=== PATIENT | female | born 1960 | race Caucasian/White ===

== ENCOUNTER → 2017-03-03 | Outpatient (CLI) | payer BC ==
--- NOTE | 2017-03-03 09:59 | MM ---
Reason for exam: additional evaluation requested from prior study. Last mammogram was performed 1 year and 2 months ago. History: Patient is postmenopausal, has history of breast cancer at age 45, and history of other cancer. Family history of breast cancer in mother at age 64 and breast cancer in maternal aunt. Benign core biopsy of the right breast, September 23, 2010. Benign core biopsy of the right breast, 2009. Breast lift of the right breast, July 2007. Saline implant in the left breast, 2007. Mastectomy of the left breast, August 12, 2006. Malignant lumpectomy of the left breast, February 16, 2006. Mastectomy of the left breast. Took hormonal contraceptives for 4 years. Physical Findings: Nurse did not find any significant physical abnormalities on exam. MG 3D Diag Mammo W/Cad RT CC and MLO view(s) were taken of the right breast. Prior study comparison: January 14, 2016, right breast MG diagnostic mammo RT w CAD. December 26, 2014, right breast MG diagnostic mammo RT w CAD. The breast tissue is heterogeneously dense. This may lower the sensitivity of mammography. Finding: There are typically benign round, regional calcifications in the right breast. Previous mammotome biopsy in the right breast. There is no discrete abnormality. These results were verbally communicated with the patient and result sheet given to the patient on 03/03/17. ASSESSMENT: Benign, BI-RAD 2 RECOMMENDATION: Follow-up diagnostic mammogram of the right breast in 1 year.
== END | disposition home or self-care (01) ==
LOC: RADMAMWWP 08:48
PROVIDERS: ATTEND Surgery
DX: Z08 Encounter for follow-up examination after completed treatment for malignant neoplasm (principal); Z85.3 Personal history of malignant neoplasm of breast
CPT/HCPCS: G0206; G0279

== ENCOUNTER → 2018-03-25 | Outpatient (CLI) | payer BC ==
--- NOTE | 2018-03-25 10:09 | MM ---
Reason for exam: additional evaluation requested from prior study. Last mammogram was performed 1 year and 1 month ago. History: Patient is postmenopausal, has history of breast cancer at age 45, and history of other cancer. Family history of breast cancer in mother at age 64 and breast cancer in maternal aunt. Benign core biopsy of the right breast, September 23, 2010. Benign core biopsy of the right breast, 2009. Breast lift of the right breast, July 2007. Saline implant in the left breast, 2007. Mastectomy of the left breast, August 12, 2006. Malignant lumpectomy of the left breast, February 16, 2006. Mastectomy of the left breast. Took hormonal contraceptives for 4 years. Physical Findings: Nurse did not find any significant physical abnormalities on exam. MG 3D Diag Mammo W/Cad RT CC and MLO view(s) were taken of the right breast. Prior study comparison: March 03, 2017, right breast MG 3d diag mammo w/cad RT. January 14, 2016, right breast MG diagnostic mammo RT w CAD. There are scattered fibroglandular densities. Previous mammotome biopsy in the right breast. Scattered focal asymmetries are unchanged. No significant new findings when compared with previous films. These results were verbally communicated with the patient and result sheet given to the patient on 03/25/18. ASSESSMENT: Benign, BI-RAD 2 RECOMMENDATION: Follow-up diagnostic mammogram of the right breast in 1 year.
--- NOTE | 2018-03-25 10:43 | P.GSHP ---
History of Present Illness H&P Date: 03/25/18 Chief Complaint: history of breast cancer Ninoska is a 57 year old white female with a history of left breast cancer in 2006 at the age of 45. She underwent a lumpectomy and chemotherapy, she did not have any hormonal therapy. She after the lumpectomy opted for a mastectomy rather than undergoing radiation. She then had mastectomy and reconstruction. This was done with implant reconstruction. Her plastic surgeon Dr. Block initially due to the reconstruction with a saline implant which was then exchanged for a silicone implant. She had a right breast mammogram performed on 03-25-18 which did not show any lesions of concern. Patient does not feel anything in her breasts for which she is concerned. She has no concerns related to the left side of her chest wall. The patient has not had BRCA1 testing. At this time she does not wish to undergo BRCA1 testing. The patient's sister and a niece have been tested and they were negative for for BRCA1. Family history: 1. Mother breast cancer at 64 2. Maternal aunt breast cancer at 30, she was at the time and she 3. mother: lung cancer 4. father: lung cancer Menstral History: menarche: 11 : 2, children 1, 1 at , breast fed: no age at first 22 menopause: with chemotherapy BCP: 10 years hormones: treatment to get Past surgical history 1. 2 2. Tonsils 3. Multiple breast surgeries Past medical history: 1. None Social history: Smoking: Stopped 20 years ago used to smoke a pack per day for 15 years Alcohol: Occasional Drugs: Negative - Constitutional Constitutional: Denies chills, Denies fever - EENT Eyes: denies blurred vision, denies pain Ears: deny: decreased hearing, tinnitus Ears, nose, mouth and throat: Denies headache, Denies sore throat - Breasts Breasts: bilateral: as per HPI - Cardiovascular Comment: high cholesterol Cardiovascular: Reports high blood pressure, Denies chest pain, Denies shortness of breath - Respiratory Respiratory: Denies cough, Denies 7 - Gastrointestinal Gastrointestinal: Denies abdominal pain, Denies diarrhea, Denies nausea, Denies vomiting - Genitourinary (Female) Genitourinary: Denies dysuria, Denies hematuria - Menstruation Menstruation: Reports postmenopausal - Musculoskeletal Musculoskeletal: Denies myalgias - Integumentary Integumentary: Denies pruritus, Denies rash - Neurological Neurological: Denies numbness, Denies weakness - Psychiatric Psychiatric: Denies anxiety, Denies depression - Endocrine Endocrine: Denies fatigue, Denies weight change - Hematologic/Lymphatic Comment: none - Allergic/Immunologic Comment: codiene, PCN, adhesives Allergic/Immunologic: Reports seasonal allergies Past Medical History Past Medical History: Cancer, Hyperlipidemia, Hypertension Additional Past Medical History / Comment(s): hx breast cancer 2006-had chemo. History of Any Multi-Drug Resistant Organisms: None Reported Past Surgical History: Adenoidectomy, Breast Surgery, Section, Tonsillectomy Additional Past Surgical History / Comment(s): mastectomy left, breast lift right, multiple biopsies, exp. laparoscopy Past Anesthesia/Blood Transfusion Reactions: Motion Sickness, Postoperative Nausea & Vomiting (PONV) Smoking Status: Former smoker - Past Family History Father Family Medical History: Cancer Mother Family Medical History: Cancer Medications and Allergies Home Medications Medication Instructions Recorded Confirmed Type ALPRAZolam [Xanax] 0.25 mg PO BID PRN 07/06/15 03/25/18 History Calcium Carbonate/Vitamin D3 1 each PO DAILY 07/06/15 03/25/18 History [Calcium 600 + Vit D Tablet] Cholecalciferol [Vitamin D3] 1,000 unit PO DAILY 07/06/15 03/25/18 History Multivit with Calcium,Iron,Min 1 each PO DAILY 07/06/15 03/25/18 History [Women's Daily Multivitamin] Risedronate Sodium [Actonel] 150 mg PO QMONTH 07/06/15 03/25/18 History Simvastatin [Zocor] 10 mg PO HS 07/06/15 03/25/18 History cloNIDine HCL [Catapres] 0.2 mg PO BID 07/06/15 03/25/18 History Allergies Allergy/AdvReac Type Severity Reaction Status Date / Time Penicillins Allergy Unknown Verified 07/06/15 09:40 Childhood adhesive AdvReac redness Verified 07/06/15 09:40 codeine AdvReac Nausea, Verified 07/06/15 09:40 dizzy Surgical - Exam T 97.7, P 99, BP: 135/90 BMI 28 - General well developed, well nourished, no distress - Eyes normal ocular movement, no icteric - ENT no hearing loss, no congestion - Neck no masses, trachea midline - Respiratory normal respiratory effort, clear to auscultation - Cardiovascular Rhythm: regular Heart Sounds: normal: S1, S2 - Abdomen Abdomen: soft, non tender, no guarding, no rigid, no rebound - Integumentary normal turger - Neurologic no disoriented, no combative - Musculoskeletal normal gait, normal posture - Psychiatric oriented to time, oriented to person, oriented to place, speech is normal, memory intact breast exam: right breast well healed scars from prior surgery no dominant masses or nodules of concern Right axilla: No adenopathy of concern Left chest wall: No evidence of recurrent cancer reconstruction was done Left axilla: No adenopathy of concern Results Right breast mammogram results reviewed Assessment and Plan Assessment: Impression: 1. Status post left breast mastectomy no evidence of recurrent disease 2. Hypertension 3. High cholesterol Plan: 1. Repeat right breast mammogram and physician exam in 1 year CC: Dr. Barth
== END | disposition home or self-care (01) ==
LOC: RADMAMWWP 08:13
PROVIDERS: ATTEND Surgery
DX: Z08 Encounter for follow-up examination after completed treatment for malignant neoplasm (principal); Z85.3 Personal history of malignant neoplasm of breast
CPT/HCPCS: 77061; 77065

== ENCOUNTER → 2019-06-03 | Outpatient (CLI) | payer BC ==
--- NOTE | 2019-06-03 13:14 | MM ---
Reason for exam: additional evaluation requested from prior study. Last mammogram was performed 1 year and 2 months ago. History: Patient is postmenopausal, has history of breast cancer at age 45, and history of other cancer. Family history of breast cancer in mother at age 64 and breast cancer in maternal aunt. Benign core biopsy of the right breast, September 23, 2010. Benign core biopsy of the right breast, 2009. Breast lift of the right breast, July 2007. Saline implant in the left breast, 2007. Mastectomy of the left breast, August 12, 2006. Malignant lumpectomy of the left breast, February 16, 2006. Mastectomy of the left breast. Took hormonal contraceptives for 4 years. Physical Findings: Nurse did not find any significant physical abnormalities on exam. MG 3D Diag Mammo W/Cad RT CC and MLO view(s) were taken of the right breast. Prior study comparison: March 25, 2018, right breast MG 3d diag mammo w/cad RT. March 03, 2017, right breast MG 3d diag mammo w/cad RT. There are scattered fibroglandular densities. Benign appearing calcifications in the right breast. Right biopsy marker. Stable post surgical change on the right. These results were verbally communicated with the patient and result sheet given to the patient on 06/03/19. ASSESSMENT: Benign, BI-RAD 2 RECOMMENDATION: Follow-up diagnostic mammogram of both breasts in 1 year.
== END | disposition home or self-care (01) ==
LOC: RADMAMWWP 10:50
PROVIDERS: ATTEND Surgery
DX: Z08 Encounter for follow-up examination after completed treatment for malignant neoplasm (principal); Z85.3 Personal history of malignant neoplasm of breast
CPT/HCPCS: 77061; 77065

== ENCOUNTER → 2020-07-18 | Outpatient (CLI) | payer BC ==
--- NOTE | 2020-07-18 11:39 | MM ---
Reason for exam: additional evaluation requested from prior study. Last mammogram was performed 1 year and 2 months ago. History: Patient is postmenopausal, has history of breast cancer at age 45, and history of other cancer. Family history of breast cancer in mother at age 64 and breast cancer in maternal aunt. Benign core biopsy of the right breast, September 23, 2010. Benign core biopsy of the right breast, 2009. Breast lift of the right breast, July 2007. Saline implant in the left breast, 2007. Mastectomy of the left breast, August 12, 2006. Malignant lumpectomy of the left breast, February 16, 2006. Mastectomy of the left breast. Took hormonal contraceptives for 4 years. Physical Findings: Nurse did not find any significant physical abnormalities on exam. MG 3D Diag Mammo W/Cad RT CC, MLO, and XCCL view(s) were taken of the right breast. Prior study comparison: June 03, 2019, right breast MG 3d diag mammo w/cad RT. March 25, 2018, right breast MG 3d diag mammo w/cad RT. The breast tissue is heterogeneously dense. This may lower the sensitivity of mammography. Previous mammotome biopsy in the right breast. No significant new findings when compared with previous films. These results were verbally communicated with the patient and result sheet given to the patient on 07/18/20. ASSESSMENT: Benign, BI-RAD 2 RECOMMENDATION: Follow-up diagnostic mammogram of the right breast in 1 year.
== END | disposition home or self-care (01) ==
LOC: RADMAMWWP 10:52
PROVIDERS: ATTEND Surgery
DX: Z85.3 Personal history of malignant neoplasm of breast (principal); Z80.3 Family history of malignant neoplasm of breast; Z78.0 Asymptomatic menopausal state; Z90.12 Acquired absence of left breast and nipple
CPT/HCPCS: 77061; 77065

== ENCOUNTER → 2020-08-03 | Outpatient (CLI) | payer BC ==
[2020-08-03 10:32] VITALS: BP 131/84; PULSE 52; RESP 18; TEMP 98.2
--- NOTE | 2020-08-03 10:51 | P.PN ---
Subjective Progress Note Date: 08/03/20 Principal diagnosis: left breast cancer stage II at 45 Stage II left breast cancer 2006/ Ninoska is a 59 year old white female with a history of left breast cancer in 2006 at the age of 45. She underwent a lumpectomy and chemotherapy, she did not have any hormonal therapy. She after the lumpectomy opted for a mastectomy rather than undergoing radiation. She then had mastectomy and reconstruction. This was done with implant reconstruction. Her plastic surgeon was Dr. Block. She had a right breast mammogram performed on 07-18-20, this was benign ИВАН 2. Patient does not feel anything in her breasts for which she is concerned. She has no concerns related to the left side of her chest wall. The patient has not had BRCA1 testing. At this time she does not wish to undergo BRCA1 testing. The patient's sister and a niece have been tested and they were negative for for BRCA1. Family history: 1. Mother breast cancer at 64 2. Maternal aunt breast cancer at 30, she was at the time and she 3. mother: lung cancer ( at 75) 4. father: lung cancer ( at 79) Menstral History: menarche: 11 : 2, children 1, 1 at , breast fed: no age at first 22 menopause: with chemotherapy BCP: 10 years hormones: treatment to get Past surgical history 1. 2 2. Tonsils 3. Multiple breast surgeries Past medical history: 1. None Social history: Smoking: Stopped 20 years ago used to smoke a pack per day for 15 years Alcohol: Occasional Drugs: Negative - Constitutional Constitutional: Denies chills, Denies fever - EENT Eyes: denies blurred vision, denies pain Ears: deny: decreased hearing, tinnitus Ears, nose, mouth and throat: Denies headache, Denies sore throat - Breasts Breasts: bilateral: as per HPI - Cardiovascular Comment: high cholesterol Cardiovascular: Reports high blood pressure, Denies chest pain, Denies shortness of breath - Respiratory Respiratory: Denies cough - Gastrointestinal Gastrointestinal: Denies abdominal pain, Denies diarrhea, Denies nausea, Denies vomiting - Genitourinary (Female) Genitourinary: Denies dysuria, Denies hematuria - Menstruation Menstruation: Reports postmenopausal - Musculoskeletal Musculoskeletal: Denies myalgias - Integumentary Integumentary: Denies pruritus, Denies rash - Neurological Neurological: Denies numbness, Denies weakness - Psychiatric Psychiatric: Denies anxiety, Denies depression - Endocrine Endocrine: Denies fatigue, Denies weight change - Hematologic/Lymphatic Comment: none - Allergic/Immunologic Comment: codiene, PCN, adhesives Allergic/Immunologic: Reports seasonal allergies Past Medical History Past Medical History: Cancer, Hyperlipidemia, Hypertension Additional Past Medical History / Comment(s): hx breast cancer 2006-had chemo. History of Any Multi-Drug Resistant Organisms: None Reported Past Surgical History: Adenoidectomy, Breast Surgery, Section, Tonsillectomy Additional Past Surgical History / Comment(s): mastectomy left, breast lift right, multiple biopsies, exp. laparoscopy Past Anesthesia/Blood Transfusion Reactions: Motion Sickness, Postoperative Nausea & Vomiting (PONV) Smoking Status: Former smoker Objective - Vital Signs Vital signs: Vital Signs Temp 98.2 F 08/03/20 10:30 Pulse 52 L 08/03/20 10:30 Resp 18 08/03/20 10:30 BP 131/84 08/03/20 10:30 Pulse Ox 95 08/03/20 10:30 Intake & Output 08/02/20 08/03/20 08/03/20 18:59 06:59 18:59 Weight 88.451 kg - Constitutional General appearance: Present: average body habitus - EENT Eyes: Present: EOMI ENT: Present: hearing grossly normal - Neck Neck: Present: normal ROM - Respiratory Respiratory: bilateral: CTA - Cardiovascular Rhythm: regular Heart sounds: normal: S1, S2 - Integumentary Integumentary: Present: normal turgor - Musculoskeletal Musculoskeletal: Present: gait normal - Psychiatric Psychiatric: Present: A&O x's 3, appropriate affect, intact judgment & insight - Additional findings Additional findings: Breast exam: BRA: 38C inspection: Patient has had left breast mastectomy and reconstruction, well- healed scars related to this patient has had a left on the right side well- healed scars related to this Palpation: Right breast: Positional exam fibrocystic changes no dominant masses or nodules of concern Right axilla: No adenopathy of concern Left breast: Chest wall no evidence of recurrent cancer patient status post mastectomy with implant reconstruction Left axilla: No adenopathy of concern Assessment and Plan Assessment: Impression: 1. 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 Right breast no evidence of disease which would warrant interventional biopsy 3. Asymmetry related to prior surgery Plan: 1. Prescription to be given for brought with pocket to have correct asymmetry between the breast 2. Repeat right breast mammogram in 1 year 3. Follow-up 1 year CC: Dr. Barth
== END ==
LOC: WWCWWP 10:16
PROVIDERS: ATTEND Surgery
DX: N64.89 Other specified disorders of breast (principal); Z90.12 Acquired absence of left breast and nipple; E78.5 Hyperlipidemia, unspecified; I10 Essential (primary) hypertension; Z92.21 Personal history of antineoplastic chemotherapy; Z85.3 Personal history of malignant neoplasm of breast; Z87.891 Personal history of nicotine dependence

== ENCOUNTER → 2021-07-22 | Outpatient (CLI) | payer BC ==
--- NOTE | 2021-07-22 11:00 | MM ---
Reason for exam: additional evaluation requested from prior study. Last mammogram was performed 1 year ago. History: Patient is postmenopausal, has history of breast cancer at age 45, and history of other cancer. Family history of breast cancer in mother at age 64 and breast cancer in maternal aunt. Benign core biopsy of the right breast, September 23, 2010. Benign core biopsy of the right breast, 2009. Breast lift of the right breast, July 2007. Saline implant in the left breast, 2007. Mastectomy of the left breast, August 12, 2006. Malignant lumpectomy of the left breast, February 16, 2006. Mastectomy of the left breast. Took hormonal contraceptives for 4 years. Physical Findings: A clinical breast exam by your physician is recommended on an annual basis and results should be correlated with mammographic findings. MG 3D Diag Mammo W/Cad RT CC and MLO view(s) were taken of the right breast. Prior study comparison: July 18, 2020, right breast MG 3d diag mammo w/cad RT. June 03, 2019, right breast MG 3d diag mammo w/cad RT. There are scattered fibroglandular densities. Previous mammotome biopsy in the right breast. Benign oil cyst calcifications. No significant changes when compared with prior studies. ASSESSMENT: Benign, BI-RAD 2 RECOMMENDATION: Follow-up diagnostic mammogram of the right breast in 1 year.
== END | disposition home or self-care (01) ==
LOC: RADMAMWWP 10:08
PROVIDERS: ATTEND Surgery
DX: R92.1 Mammographic calcification found on diagnostic imaging of breast (principal); Z85.3 Personal history of malignant neoplasm of breast; Z78.0 Asymptomatic menopausal state; Z80.3 Family history of malignant neoplasm of breast; Z90.12 Acquired absence of left breast and nipple
CPT/HCPCS: 77061; 77065

== ENCOUNTER → 2022-07-28 | Outpatient (CLI) | payer BC ==
--- NOTE | 2022-07-28 08:40 | MM ---
Reason for Exam: Follow-up at short interval from prior study. Last screening mammogram was performed 12 month(s) ago. Patient History: Menarche at age 11. First Full-Term at age 22. Postmenopausal. Breast cancer, age 45. Other cancer. Previous chemotherapy at age 47. Hormonal Contraceptives for 4 years until age 22. 09/23/2010, Benign Core Biopsy on the right side. 2009, Benign Core Biopsy on the right side. Mastectomy on the Left side. 08/12/2006, Mastectomy on the Left side. 02/16/2006, Malignant Lumpectomy on the left side. 2007, Implant on the left side. Maternal aunt had breast cancer. Mother had breast cancer, age 64. Prior Study Comparison: 06/03/2019 Right Diagnostic Mammogram, [facility]. 07/18/2020 Right Diagnostic Mammogram, [facility]. 07/22/2021 Right Diagnostic Mammogram, [facility]. Tissue Density: Right: The breast tissue is heterogeneously dense. This may lower the sensitivity of mammography. Findings: Analyzed By CAD. Stable benign calcifications. No evidence for mass or distortion. Microclip marker upper outer right breast. Overall Assessment: Benign, BI-RAD 2 Management: Diagnostic Mammogram of the right breast. A clinical breast exam by your physician is recommended on an annual basis and results should be correlated with mammographic findings. This exam should not preclude additional follow-up of suspicious palpable abnormalities. Results were given to the patient verbally at the time of exam. Electronically signed and approved by: Eulogio Arango M.D. Radiologis
== END | disposition home or self-care (01) ==
LOC: RADMAMWWP 08:07
PROVIDERS: ATTEND Surgery
DX: Z85.3 Personal history of malignant neoplasm of breast (principal); Z78.0 Asymptomatic menopausal state; Z80.3 Family history of malignant neoplasm of breast
CPT/HCPCS: 77061; 77065

== ENCOUNTER → 2022-07-31 | Outpatient (CLI) | payer BC ==
--- NOTE | 2022-07-31 15:00 | P.PN ---
Progress Note - Text Progress Note Date: 07/31/22 The patient was called with her mammogram of [place] [id number]. This was benign BIRADS 2. Appointment was rescheduled secondary to emergency surgical case having to be done. The patient denies any lumps masses or nodules of concern in her breast will be rescheduled in the near future.
== END ==
LOC: WWCWWP 10:08
PROVIDERS: ATTEND Surgery
DX: Z12.31 Encounter for screening mammogram for malignant neoplasm of breast (principal); Z88.0 Allergy status to penicillin; Z88.5 Allergy status to narcotic agent; Z91.048 Other nonmedicinal substance allergy status; Z87.891 Personal history of nicotine dependence

== ENCOUNTER → 2022-09-11 | Outpatient (CLI) | payer BC ==
--- NOTE | 2022-09-11 15:56 | P.PN ---
Subjective Progress Note Date: 09/11/22 Principal diagnosis: left breast cancer stage II, 2007 Stage II left breast cancer 2006/ Ninoska is a 60 year old white female with a history of left breast cancer in 2006 at the age of 45. She underwent a lumpectomy and chemotherapy, she did not have any hormonal therapy. She after the lumpectomy opted for a mastectomy rather than undergoing radiation. She then had mastectomy and reconstruction. This was done with implant reconstruction. Her plastic surgeon was Dr. Block. She had a right breast mammogram performed on 07-28-22 this was benign ИВАН 2. Patient does not feel anything in her breasts for which she is concerned. She has no concerns related to the left side of her chest wall. Has not noted any lumps masses or nodules of concern in her right breast. The patient has not had BRCA1 testing. At this time she does not wish to undergo BRCA1 testing. The patient's sister and a niece have been tested and they were negative for for BRCA1. Family history: 1. Mother breast cancer at 64 2. Maternal aunt breast cancer at 30, she was at the time and she 3. mother: lung cancer ( at 75) 4. father: lung cancer ( at 79) Menstral History: menarche: 11 : 2, children 1, 1 at , breast fed: no age at first 22 menopause: with chemotherapy BCP: 10 years hormones: treatment to get Past surgical history 1. 2 2. Tonsils 3. Multiple breast surgeries 4. skin cancer left side of face; basal cell Dr. Dominguez Past medical history: 1. None Social history: Smoking: Stopped 20 years ago used to smoke a pack per day for 15 years Alcohol: Occasional Drugs: Negative - Constitutional Constitutional: Denies chills, Denies fever - EENT Eyes: denies blurred vision, denies pain Ears: deny: decreased hearing, tinnitus Ears, nose, mouth and throat: Denies headache, Denies sore throat - Breasts Breasts: bilateral: as per HPI - Cardiovascular Comment: high cholesterol Cardiovascular: Reports high blood pressure, Denies chest pain, Denies shortness of breath - Respiratory Respiratory: Denies cough - Gastrointestinal Gastrointestinal: Denies abdominal pain, Denies diarrhea, Denies nausea, Denies vomiting - Genitourinary (Female) Genitourinary: Denies dysuria, Denies hematuria - Menstruation Menstruation: Reports postmenopausal - Musculoskeletal Musculoskeletal: Denies myalgias - Integumentary Integumentary: Denies pruritus, Denies rash - Neurological Neurological: Denies numbness, Denies weakness - Psychiatric Psychiatric: Denies anxiety, Denies depression - Endocrine Endocrine: Denies fatigue, Denies weight change - Hematologic/Lymphatic Comment: none - Allergic/Immunologic Comment: codiene, PCN, adhesives Allergic/Immunologic: Reports seasonal allergies Objective - Constitutional General appearance: Present: cooperative - EENT Eyes: Present: EOMI ENT: Present: hearing grossly normal - Neck Neck: Present: normal ROM - Respiratory Respiratory: bilateral: CTA - Cardiovascular Rhythm: regular Heart sounds: normal: S1, S2 - Integumentary Integumentary: Present: normal turgor - Musculoskeletal Musculoskeletal: Present: gait normal - Psychiatric Psychiatric: Present: A&O x's 3, appropriate affect, intact judgment & insight - Additional findings Additional findings: Breast examination: BRA: 42A inspection: Patient has post op changes from left mastectomy and reconstruction, well-healed scars right breast from reduction mammoplasty in 2008 Dr. Armstrong Palpation: Right breast: Multi-positional exam fibrocystic changes no dominant masses or nodules of concern Right axilla: No adenopathy of concern Left chest wall: No evidence of any recurrent cancer Left axilla: No adenopathy of concern Assessment and Plan Assessment: Impression: 1. Patient status post left breast mastectomy for stage II invasive ductal carcinoma at the age of 45, this was done in 2006, patient had chemotherapy no radiation or hormone therapy. No evidence of recurrent cancer Right breast no evidence of disease on mammogram or physical exam which would warrant interventional biopsy Surgery for asymmetry right breast about 10 years ago; Dr. Armstrong Plan: Repeat right breast mammogram in 1 year Follow-up in 1 year CC: Lary
[2022-09-11 16:05] VITALS: BP 154/97; PULSE 115; RESP 17; TEMP 97.4
== END ==
LOC: WWCWWP 15:34
PROVIDERS: ATTEND Surgery
DX: C50.912 Malignant neoplasm of unspecified site of left female breast (principal); Z80.3 Family history of malignant neoplasm of breast; Z85.3 Personal history of malignant neoplasm of breast; Z87.891 Personal history of nicotine dependence; Z90.12 Acquired absence of left breast and nipple; Z92.21 Personal history of antineoplastic chemotherapy; Z88.0 Allergy status to penicillin; Z88.5 Allergy status to narcotic agent; Z91.048 Other nonmedicinal substance allergy status

== ENCOUNTER → 2023-07-08 | Outpatient (CLI) | payer BC ==
--- NOTE | 2023-07-08 12:50 | US ---
EXAMINATION TYPE: US venous doppler duplex LE RT DATE OF EXAM: 07/08/2023 12:04 PM COMPARISON: NONE CLINICAL INDICATION: Female, 62 years old with history of M79.671 SYDNEY IN FOOT S92.351D FX METATARSAL; Broke foot, surgery 06/10/2023, increase in swelling; Patient denies any other signs, symptoms, or r elevant history SIDE PERFORMED: Right TECHNIQUE: The lower extremity deep venous system is examined utilizing real time linear array sonog debora with graded compression, doppler sonography and color-flow sonography. VESSELS IMAGED: Common Femoral Vein Deep Femoral Vein Greater Saphenous Vein * Femoral Vein Popliteal Vein Small Saphenous Vein * Proximal Calf Veins (* superficial vessels) Grayscale, color doppler, spectral doppler imaging performed of the deep veins of the lower extremiti es. There is normal flow, compressibility, vascular waveforms. Right Leg: Negative for DVT Left Leg: NA IMPRESSION: No evidence of deep venous thrombosis of the right lower extremity.
== END | disposition home or self-care (01) ==
LOC: RADUSWWP 11:46
PROVIDERS: ATTEND Podiatrist
DX: M79.671 Pain in right foot (principal); S92.351D Displaced fracture of fifth metatarsal bone, right foot, subsequent encounter for fracture with routine healing; Z48.89 Encounter for other specified surgical aftercare

== ENCOUNTER → 2023-07-30 | Outpatient (CLI) | payer BC ==
--- NOTE | 2023-07-30 11:18 | MM ---
Reason for Exam: Hx of breast cancer, mastectomy. Last screening mammogram was performed 12 month(s) ago. Patient History: Menarche at age 11. First Full-Term at age 22. Postmenopausal. Breast cancer, left, age 45. Other cancer. Previous chemotherapy at age 47. Hormonal Contraceptives for 4 years until age 22. 09/23/2010, Benign Core Biopsy on the right side. 2009, Benign Core Biopsy on the right side. Mastectomy on the Left side. 08/12/2006, Mastectomy on the Left side. 02/16/2006, Malignant Lumpectomy on the left side. 2007, Implant on the left side. Maternal aunt had breast cancer. Mother had breast cancer, age 64. Prior Study Comparison: 03/03/2017 Right Diagnostic Mammogram, [facility]. 03/25/2018 Right Diagnostic Mammogram, [facility]. 06/03/2019 Right Diagnostic Mammogram, [facility] 07/18/2020 Right Diagnostic Mammogram, [facility]. 07/22/2021 Right Diagnostic Mammogram, [facility]. 07/28/2022 Right MG 3D diag mammo w/cad RT, [facility]. Tissue Density: Right: The breasts are heterogeneously dense, which may obscure small masses. Findings: Analyzed By CAD. Benign punctate calcifications. No mass or distortion. Overall Assessment: Benign, BI-RAD 2 Management: Diagnostic Mammogram of the right breast in 1 year. . Results were given to the patient verbally at the time of exam. Patient should continue monthly self-breast exams. A clinical breast exam by your physician is recommended on an annual basis. This exam should not preclude additional follow-up of suspicious palpable abnormalities. Note on Christina scores and lifetime risk: 1. A Christina score greater than 3% is considered moderate risk. If this is the case, consider specialist referral to assess eligibility for a risk reducing agent. 2. If overall lifetime risk for the development of breast cancer is 20% or higher, the patient may qualify for future screening with alternating mammogram and breast MRI. Electronically signed and approved by: Eulogio Arango M.D. Radiologis
--- NOTE | 2023-07-30 12:20 | P.PN ---
Subjective Progress Note Date: 07/30/23 Principal diagnosis: stage II left breast cancer surveillance 200607-30-23 Principal diagnosis: left breast cancer stage II, 2006 Stage II left breast cancer 2006/surveillance Ninoska is a 62 year old white female with a history of left breast cancer in 2006 at the age of 45. She underwent a lumpectomy and chemotherapy, she did not have any hormonal therapy. She after the lumpectomy opted for a mastectomy rather than undergoing radiation. She then had mastectomy and reconstruction. This was done with implant reconstruction. Her plastic surgeon was Dr. Block. She had a right breast mammogram performed on 07-30-23 this was benign ИВАН 2. Patient does not feel anything in her breasts for which she is concerned. She has no concerns related to the left side of her chest wall. Has not noted any lumps masses or nodules of concern in her right breast. The patient has not had BRCA1 testing. At this time she does not wish to undergo BRCA1 testing. The patient's sister and a niece have been tested and they were negative for for BRCA1. Family history: 1. Mother breast cancer at 64 2. Maternal aunt breast cancer at 30, she was at the time and she 3. mother: lung cancer ( at 75) 4. father: lung cancer ( at 79) Menstral History: menarche: 11 : 2, children 1, 1 at , breast fed: no age at first 22 menopause: with chemotherapy BCP: 10 years hormones: treatment to get Past surgical history 1. 2 2. Tonsils 3. Multiple breast surgeries 4. skin cancer left side of face; basal cell Dr. Dominguez 5. right foot surgery trauma, 2023 Past medical history: 1. None Social history: Smoking: Stopped 20 years ago used to smoke a pack per day for 15 years Alcohol: Occasional Drugs: Negative - Constitutional Constitutional: Denies chills, Denies fever - EENT Eyes: denies blurred vision, denies pain Ears: deny: decreased hearing, tinnitus Ears, nose, mouth and throat: Denies headache, Denies sore throat - Breasts Breasts: bilateral: as per HPI - Cardiovascular Comment: high cholesterol Cardiovascular: Reports high blood pressure, Denies chest pain, Denies shortness of breath - Respiratory Respiratory: Denies cough - Gastrointestinal Gastrointestinal: Denies abdominal pain, Denies diarrhea, Denies nausea, Denies vomiting - Genitourinary (Female) Genitourinary: Denies dysuria, Denies hematuria - Menstruation Menstruation: Reports postmenopausal - Musculoskeletal Musculoskeletal: Denies myalgias - Integumentary Integumentary: Denies pruritus, Denies rash - Neurological Neurological: Denies numbness, Denies weakness - Psychiatric Psychiatric: Denies anxiety, Denies depression - Endocrine Endocrine: Denies fatigue, Denies weight change - Hematologic/Lymphatic Comment: none - Allergic/Immunologic Comment: codiene, PCN, adhesives Allergic/Immunologic: Reports seasonal allergies Objective - Constitutional General appearance: Present: cooperative - EENT Eyes: Present: EOMI ENT: Present: hearing grossly normal - Neck Neck: Present: normal ROM - Respiratory Respiratory: bilateral: CTA - Cardiovascular Rhythm: regular Heart sounds: normal: S1, S2 - Gastrointestinal General gastrointestinal: Present: soft - Integumentary Integumentary: Present: normal turgor - Musculoskeletal Musculoskeletal: Present: gait normal - Psychiatric Psychiatric: Present: A&O x's 3, appropriate affect, intact judgment & insight - Additional findings Additional findings: Breast examination: BRA: 42A inspection: Patient has post op changes from left mastectomy and reconstruction, well-healed scars right breast from reduction mammoplasty in 2008 Dr. Armstrong Palpation: Right breast: Multi-positional exam fibrocystic changes no dominant masses or nodules of concern Right axilla: No adenopathy of concern Left chest wall: No evidence of any recurrent cancer Left axilla: No adenopathy of concern Assessment and Plan Assessment: Impression: 1. Patient status post left breast mastectomy for stage II invasive ductal carcinoma at the age of 45, this was done in 2006, patient had chemotherapy no radiation or hormone therapy. No evidence of recurrent cancer Right breast no evidence of disease on mammogram or physical exam which would warrant interventional biopsy Surgery for asymmetry right breast about 10 years ago; Dr. Armstrong right breast mammogram 07-30-23 BIRAD 2 Plan: Repeat right breast mammogram in 1 year Follow-up in 1 year, follow up sooner any concerns CC: Lary
== END | disposition home or self-care (01) ==
LOC: RADMAMWWP 10:50
PROVIDERS: ATTEND Surgery
DX: R92.331 Mammographic heterogeneous density, right breast (principal); Z85.3 Personal history of malignant neoplasm of breast; Z78.0 Asymptomatic menopausal state; Z80.3 Family history of malignant neoplasm of breast
CPT/HCPCS: 77061; 77065

== ENCOUNTER → 2023-07-30 | Outpatient (CLI) | payer BC ==
[2023-07-30 12:59] VITALS: BP 114/72; PULSE 84; RESP 16; TEMP 97.8
== END ==
LOC: WWCWWP 10:48
PROVIDERS: ATTEND Surgery
DX: Z53.9 Procedure and treatment not carried out, unspecified reason (principal)

== ENCOUNTER → 2024-08-22 | Outpatient (CLI) | payer BC ==
--- NOTE | 2024-08-22 11:15 | MM ---
Reason for Exam: Hx of breast cancer, mastectomy. Last mammogram was performed 1 year(s) and 1 month(s) ago. Patient History: Menarche at age 11. First Full-Term at age 22. Postmenopausal. Breast cancer, left, age 45. Previous chemotherapy at age 47. Hormonal Contraceptives for 4 years until age 22. 09/23/2010, Benign Core Biopsy on the right side. 2009, Benign Core Biopsy on the right side. Mastectomy on the Left side. 08/12/2006, Mastectomy on the Left side. 02/16/2006, Malignant Lumpectomy on the left side. 2007, Implant on the left side. Maternal aunt had breast cancer. Mother had breast cancer, age 64. Prior Study Comparison: 07/22/2021 Right Diagnostic Mammogram, [facility]. 07/28/2022 Right MG 3D diag mammo w/cad RT, [facility]. 07/30/2023 Right MG 3D diag mammo w/cad RT, [facility]. Tissue Density: Right: There are scattered areas of fibroglandular density. Findings: Analyzed By CAD. Right breast biopsy clip. There is no suspicious group of microcalcifications or new suspicious mass. Benign-appearing calcifications right breast. No new suspicious masses, calcifications or distortions. Overall Assessment: Benign, BI-RAD 2 Management: Screening Mammogram of the right breast in 1 year. Results were given to the patient verbally at the time of exam. Patient should continue monthly self-breast exams. A clinical breast exam by your physician is recommended on an annual basis. This exam should not preclude additional follow-up of suspicious palpable abnormalities. Note on Christina scores and lifetime risk: 1. A Christina score greater than 3% is considered moderate risk. If this is the case, consider specialist referral to assess eligibility for a risk reducing agent. 2. If overall lifetime risk for the development of breast cancer is 20% or higher, the patient may qualify for future screening with alternating mammogram and breast MRI. [facility], , 08/22/2024 11:12 AM. Electronically signed and approved by: Roberto Paul DO
== END | disposition home or self-care (01) ==
LOC: RADMAMWWP 10:45
PROVIDERS: ATTEND Surgery
DX: N63.10 Unspecified lump in the right breast, unspecified quadrant (principal); R92.321 Mammographic fibroglandular density, right breast; Z78.0 Asymptomatic menopausal state; Z80.3 Family history of malignant neoplasm of breast; Z92.0 Personal history of contraception; Z85.3 Personal history of malignant neoplasm of breast
CPT/HCPCS: 77061; 77065

== ENCOUNTER → 2024-08-25 | Outpatient (CLI) | payer BC ==
[2024-08-25 10:06] VITALS: BP 122/81; PULSE 100; RESP 16; TEMP 98.6
--- NOTE | 2024-08-25 10:19 | P.PN ---
Subjective Progress Note Date: 08/25/24 Principal diagnosis: left breast mastectomy for stage II invasive ductal carcinoma at the age of 45, this was done in 200608-22-24 Principal diagnosis: Stage II left breast cancer Ninoska is a 63 year old white female with a history of left breast cancer in 2006 at the age of 45. She underwent a lumpectomy and chemotherapy, she did not have any hormonal therapy. She after the lumpectomy opted for a mastectomy rather than undergoing radiation. She then had mastectomy and reconstruction. This was done with implant reconstruction. Her plastic surgeon was Dr. Block. She had a right breast mammogram performed on 08-22-24 this was benign ИВАН 2. This was personally reviewed and interpreted. Patient does not feel anything in her breasts for which she is concerned. She has no concerns related to the left side of her chest wall. Has not noted any lumps masses or nodules of concern in her right breast. The patient has not had BRCA1 testing. At this time she does not wish to undergo BRCA1 testing. The patient's sister and a niece have been tested and they were negative for for BRCA1. Family history: 1. Mother breast cancer at 64 2. Maternal aunt breast cancer at 30, she was at the time and she 3. mother: lung cancer ( at 75) 4. father: lung cancer ( at 79) Menstral History: menarche: 11 : 2, children 1, 1 at , breast fed: no age at first 22 menopause: with chemotherapy BCP: 10 years hormones: treatment to get Past surgical history 1. 2 2. Tonsils 3. Multiple breast surgeries 4. skin cancer left side of face; basal cell Dr. Dominguez 5. right foot surgery trauma, 2023 Past medical history: 1. None Social history: Smoking: Stopped 20 years ago used to smoke a pack per day for 15 years Alcohol: Occasional Drugs: Negative - Constitutional Constitutional: Denies chills, Denies fever - EENT Eyes: denies blurred vision, denies pain Ears: deny: decreased hearing, tinnitus Ears, nose, mouth and throat: Denies headache, Denies sore throat - Breasts Breasts: bilateral: as per HPI - Cardiovascular Comment: high cholesterol Cardiovascular: Reports high blood pressure, Denies chest pain, Denies shortness of breath - Respiratory Respiratory: Denies cough - Gastrointestinal Gastrointestinal: Denies abdominal pain, Denies diarrhea, Denies nausea, Denies vomiting - Genitourinary (Female) Genitourinary: Denies dysuria, Denies hematuria - Menstruation Menstruation: Reports postmenopausal - Musculoskeletal Musculoskeletal: Denies myalgias - Integumentary Integumentary: Denies pruritus, Denies rash - Neurological Neurological: Denies numbness, Denies weakness - Psychiatric Psychiatric: Denies anxiety, Denies depression - Endocrine Endocrine: Denies fatigue, Denies weight change - Hematologic/Lymphatic Comment: none - Allergic/Immunologic Comment: codiene, PCN, adhesives Allergic/Immunologic: Reports seasonal allergies Objective - Vital Signs Vital signs: Vital Signs Temp 98.6 F 08/25/24 10:03 Pulse 100 08/25/24 10:03 Resp 16 08/25/24 10:03 BP 122/81 08/25/24 10:03 Pulse Ox 99 08/25/24 10:03 FiO2 Intake & Output 08/24/24 08/25/24 08/25/24 18:59 06:59 18:59 Weight 83.915 kg - Constitutional General appearance: Present: cooperative - EENT Eyes: Present: EOMI ENT: Present: hearing grossly normal - Neck Neck: Present: normal ROM - Respiratory Respiratory: bilateral: CTA - Cardiovascular Rhythm: regular Heart sounds: normal: S1, S2 - Integumentary Integumentary: Present: normal turgor - Musculoskeletal Musculoskeletal: Present: gait normal - Psychiatric Psychiatric: Present: A&O x's 3, appropriate affect, intact judgment & insight - Additional findings Additional findings: Breast examination: BRA: 42A inspection: Patient has post op changes from left mastectomy and reconstruction, well-healed scars right breast from reduction mammoplasty in [address] Dr. Armstrong Palpation: Right breast: Multi-positional exam fibrocystic changes no dominant masses or nodules of concern Right axilla: No adenopathy of concern Left chest wall: No evidence of any recurrent cancer Left axilla: No adenopathy of concern Assessment and Plan Assessment: Impression: 1. Patient status post left breast mastectomy for stage II invasive ductal carcinoma at the age of 45, this was done in 2006, patient had chemotherapy no radiation or hormone therapy. No evidence of recurrent cancer Right breast no evidence of disease on mammogram or physical exam which would warrant interventional biopsy Surgery for asymmetry right breast about 11 years ago; Dr. Armstrong right breast mammogram 08-22-24 BIRAD 2 Plan: Repeat right breast mammogram in 1 year; August 2025 Follow-up in 1 year, follow up sooner any concerns CC: Lary
== END ==
LOC: WWCWWP 09:51
PROVIDERS: ATTEND Surgery
DX: C50.912 Malignant neoplasm of unspecified site of left female breast (principal); Z90.11 Acquired absence of right breast and nipple; Z88.0 Allergy status to penicillin; Z88.5 Allergy status to narcotic agent; Z91.048 Other nonmedicinal substance allergy status; Z87.891 Personal history of nicotine dependence